=== PATIENT | male | born 1970 ===

== ENCOUNTER 2025-05-11 09:51 | Emergency (ER) | payer BC, SELFPAY ==
--- NOTE | 2025-05-11 | ECG_ITS ---
Test Reason : dizziness Blood Pressure : */* mmHG Vent. Rate : 62 BPM Atrial Rate : 62 BPM P-R Int : 140 ms QRS Dur : 102 ms QT Int : 412 ms P-R-T Axes : 33 46 30 degrees QTcB Int : 418 ms Normal sinus rhythm Minimal voltage criteria for LVH, may be normal variant ( Sokolow-Osuna ) Borderline ECG No previous ECGs available Referred By: Generic ED Physician Electronically Signed By: GABINO ST
[2025-05-11 09:56] VITALS: BP 164/82; PULSE 72; RESP 20; TEMP 36.4; O2SAT 99; BMI 24.5
[2025-05-11 10:40] LABS: Hematocrit 44.0 % (42.0-52.0); Hemoglobin 15.4 g/dl (14.0-18.0); Imm Gran Abs Auto 0.04 X10*3/uL (0.00-0.03); Imm Gran Pct Auto 0.5 % (0.0-0.4); Lymphocytes Absolute Auto 1.1 X10*3/uL (1.2-4.9); MANUAL DIFF FLAG NO; Mean Corpuscular HGB Conc 35.0 g/dl (31.0-36.0); Mean Corpuscular Hemoglobin 29.4 pg (27.0-33.0); Mean Corpuscular Volume 84.0 fL (80.0-98.0); NRBC Abs Auto 0.000 X10*3/uL (0.0-0.012); NRBC Pct Auto 0.0 /100WBC (0.0-0.2); Platelet Count 289 X10*3/uL (160-400); Red Blood Count 5.24 X10*6/uL (4.60-5.80); White Blood Count 7.6 X10*3/uL (4.8-10.8)
--- OUTSIDE RECORDS SUMMARY | 2025-05-11 11:26 | XMS_ITS | Clinical Summary ---
Author Organization [address] Address [address] [place] [address] Phone Care Team Providers Care Cps Team Lead Name Role Phone Dajuan Rangel Primary Care Provider [phone] Allergies No known active allergies Medications amLODIPine (NORVASC) 5 MG tablet 08/16/2015 Active Social History Tobacco Use Types Packs/Day Years Used Date Smoking Tobacco: Never Alcohol Use Standard Drinks/Week Comments No 0 (1 standard drink = 0.6 oz pur e alcohol) Sex and Gender Information Value Date Recorded Sex Assigned at Not on file Legal Sex Male 11:15 AM EDT Gender Identity Not on file Sexual Orientation Not on file Last Filed Vital Signs Vital Sign Reading Time Taken Comments Blood Pressure 140/80 09/18/2015 11:56 AM EDT Pulse 70 09/18/2015 11:56 AM EDT Temperature 36.8 C (98.2 F) 09/18/2015 11:24 AM EDT Respiratory Rate 18 09/18/2015 11:56 AM EDT Oxygen Saturation 96% 09/18/2015 11:24 AM EDT Inhaled Oxygen Concentration - - Weight - - Height - - Body Mass Index - - Plan of Treatment Health Maintenance Due Date Last Done Comments HIV screening 1981 Hepatitis C screening 1986 Tetanus adult (Td q 10,TDAP once) 1988 Lipid disorder screening 2008 Colon cancer screening, Colonoscopy 2013 Diabetes screening 2013 Pneumococcal Vaccine (50+ ye ars) (1 of 1 - PCV) 2018 Shingles vaccine (Shingrix) (1 of 2 - Shingrix (RZV) 2 Dose Standard Series) 2018 Influenza vaccine 12/13/2024 Covid-19 vaccine series (1 - season) 2025 RSV Immunization (1 - 1-dose 75+ series) 12/10/2043 Meningococcal B Vaccine Aged Out No l onger eligible based on patient's age to complete this topic Meningococcal Vaccine Aged Out No dorene michael eligible based on patient's age to complete this topic Care Teams Cps Team Lead Relationship Specialty Start Date End Date Dajuan Rangel [address] [place] [phone] PCP - General 09/18/15
--- OUTSIDE RECORDS SUMMARY | 2025-05-11 11:26 | XMS_ITS | Clinical Summary ---
Author Organization [facility] [address] Address [address] [place] [address] Phone Care Team Providers Care Scoreboard Operator Name Role Phone Davis Sanders MD Primary Care Provider [phone] Allergies No known active allergies Medications esomeprazole magnesium (NEXIUM ORAL) Take by mouth daily. Active FA/mv,Ca,iron,m in/lycopene/lut (MULTIVITAL ORAL) Take by mouth daily. Active bisacodyL (DULCOLAX) 5 mg EC tablet Take 2 tablets by mouth right before beginning bowel prep. See instructions provided by the office 2 tablet 5 Active polyethylene glycol (Golytely) 236-22.74-6.74 -5.86 gram solution Take 4L by mouth once for one dose. May substitue any PEG. Starting at 2PM the day before your procedure drink 1 8oz glasses at your own pace until you complete half of the gallon. Finish 2nd half of the gallon at 8PM. 4000 mL 5 Active bisacodyL (DULCOLAX) 5 mg EC tablet Take 2 tablets by mouth right before beginning bowel prep. See instructions provided by the office 2 tablet 5 Active polyethylene glycol (Golytely) 236-22.74-6.74 -5.86 gram solution Take 4L by mouth once for one dose. May substitue any PEG. Starting at 2PM the day before your procedure drink 1 8oz glasses at your own pace until you complete half of the gallon. Finish 2nd half of the gallon at 8PM. 4000 mL 5 Active tamsulosin (FLOMAX) 0.4 mg 24 hr capsuleIndicati ons:Benign prostatic hyperplasia, unspecified whether lower urinary tract symptoms present,Elevate d PSA TAKE 1 CAPSULE BY MOUTH DAILY. TAKE 30 MINS AFTER SAME MEAL EVERY DAY. 90 capsule 5 Active amLODIPine (NORVASC) 10 mg tablet Take 1 tablet (10 mg total) by mouth 1 (one) time each day. 90 tablet 5 Active Active Problems Problem Noted Date Diagnosed Date Heartburn 04/25/2016 Essential hypertension, benign 09/19/2005 Encounters Date Type Department Care Team Description 03/03/2025 2:19 PM EDT Anesthesia Event [facility] Endoscopy [address] [place] [address] Giancarlo Vazquez DO Dasilva, John E, MD 03/03/2025 12:55 PM EDT - 03/03/2025 11:59 PM EDT Hospital Encounter [facility] Endoscopy [address] [place] [address] Anne Anaya MD Couture, Alison, CRNA Korobkov, Vitaliy, DO Hx of colonic polyps Discharge Disposition: Home or Self Care from Last 3 Months Immunizations Immunization Administration Dates Next Due Influenza Quadravalent, MDCK , 0.5ml, preservative free (Flucelvax) 6mo and older 04/04/2023,04/08/2019 Influenza Quadravalent, MDCK , 0.5ml, with preservative (Flucelvax) 6mo and older 02/15/2018,01/23/2017,04/08/2016 Influenza trivalent, with pr eservative (Fluzone; Afluria) 6mo and older 04/08/2016,03/09/2011,03/09/2011,03/08,03/08/2008 Pfizer SARS-CoV-2 COVID-19, mRNA, LNP-S, preservative free 10/04/2020,09/12/2020 Pneumococcal polysaccharide 23 valent (Pneumovax 23) 2yo and older 03/08/2008,12/14/2005 Tdap Tetanus diptheria acell ular pertussis (Boostrix; Adacel) 7yo and older 05/11/2015 Zoster recombinant (Shingrix ) 19yo and older 06/01/2024,02/27/2024 Surgical History Surgery Date Site/Laterality Comments APPENDECTOMY 03/07/08 PROCEDURE: HISTORICAL APPENDECTOMY; COMMENT: Dr. Wright Medical History Medical History Date Comments Essential hypertension, benign 09/19/2005 D X:Essential hypertension, benign Family history of diabetes m ellitus type II 03/13/2013 DX:Family history of diabete s mellitus type II Heartburn 04/25/2016 DX:Heartburn GERD (gastroesophageal reflux disease) BPH (benign prostatic hyperplasia) Family History Medical History Relation Name Comments Diabetes Father Diabetes Mother Relation Name Status Comments Father Alive Mother Alive Social History Tobacco Use Types Packs/Day Years Used Date Smoking Tobacco: Never Smokeless Tobacco: Never Tobacco Cessation:Counseling Given: Not Answered Alcohol Use Standard Drinks/Week Comments Yes 0 (1 standard drink = 0.6 oz pur e alcohol) OCC Interpersonal Safety Answer Date Record ed Physical Abuse Unrecognized value 03/03/2025 Verbal Abuse Unrecognized value 03/03/2025 Sex and Gender Information Value Date Recorded Sex Assigned at Male 02/26/2025 6:46 PM EDT Legal Sex Male 1:11 AM EST Gender Identity Male 02/26/2025 6:46 PM EDT Sexual Orientation Not on file Last Filed Vital Signs Vital Sign Reading Time Taken Comments Blood Pressure 126/92 03/03/2025 2:53 PM EDT Pulse 78 03/03/2025 2:53 PM EDT Temperature 36.1 C (97 F) 03/03/2025 2:33 PM EDT Respiratory Rate 17 03/03/2025 2:53 PM EDT Oxygen Saturation 98% 03/03/2025 2:53 PM EDT Inhaled Oxygen Concentration - - Weight 77.1 kg (170 lb) 03/03/2025 1:49 PM EDT Height 177.8 cm (5' 10 ) 03/03/2025 1:49 PM EDT Body Mass Index 24.39 03/03/2025 1:49 PM EDT Plan of Treatment Upcoming Encounters Date Type Department Care Team (Late st Contact Info) Description 06/17/2025 3:30 PM EST Office Visit Adult Medicine [facility] [address] [place] [address] Davis Sanders MD [address] [place] [phone] Health Maintenance Due Date Last Done Comments Hepatitis B Vaccines (1 of 3 - 19+ 3-dose series) 12/10/1987 Pneumococcal Vaccine: 50+ Years (2 of 2 - PCV) 2018 03/08/2008, 12/14/2005 Colorectal Cancer Screening: Stool Based Tests (FOBT/FIT) 04/23/2022 Social Influencers of Health Screening 04/23/2022 Hypertension/CHF/CAD Annual BMP Blood Test 04/04/2024 04/04/2023 Depression Screening 05/15/2024 COVID-19 Vaccine (3 - 2024- season) 2025 10/04/2020, 09/12/2020 Influenza Vaccine (#1) 2025 , 04/08/2019, 02/15/2018, Additional history exists DTaP,Tdap,and Td Vaccines (2 - Td or Tdap) 05/11/2025 05/11/2015 Cholesterol Screening (Lipid Panel) 04/04/2028 04/04/2023 RSV Immunization Adult Patients (1 - 1-dose 75+ series) 12/10/2043 HIV Screening Completed 06/06/2017 Hepatitis C Screening Completed 06/06/2017 Zoster Vaccines Completed 06/01/2024, 02/27/2024 Colorectal Cancer Screening: Colonoscopy Discontinued 03/03/2025, 11/19/2020 HIB Vaccines Aged Out No longer eligi ble based on patient's age to complete this topic HPV Vaccines Aged Out No longer eligi ble based on patient's age to complete this topic Hepatitis A Vaccines Aged Out No long er eligible based on patient's age to complete this topic IPV Vaccines Aged Out No longer eligi ble based on patient's age to complete this topic MMR Vaccines Aged Out No longer eligi ble based on patient's age to complete this topic Meningococcal ACWY Vaccine Aged Out N o longer eligible based on patient's age to complete this topic Meningococcal B Vaccine Aged Out No l onger eligible based on patient's age to complete this topic RSV Immunization Patients Under 20 months Aged Out No longer eligible based on patient's age to complete this topic Varicella Vaccines Aged Out No longer eligible based on patient's age to complete this topic Goals Goal Patient Goal Type Associated Problems Recent Progress Patient-Stated? Author Autogenera arminda Goal Care Plan Autogenerated Problem No Halie Miller Procedures Procedure Name Priority Date/Time Associated Diagnosis Comments COLONOSCOPY Routine 03/03/2025 2:32 PM EDT Hx of colonic polyps ANNUAL BMP BLOOD TEST Routine 04/04/2023 LIPID PANEL Routine 04/04/2023 HEPATITIS C SCREENING Routine 06/06/2017 HIV SCREENING Routine 06/06/2017 from Last 3 Months or Most Recently Relevant to Health Maintenance Results * COLONOSCOPY Anesthesia - MAC; [facility] ENDOSCOPY (03/03/2025 2:32 PM EDT) Anatomical Region Laterality Modality Endoscopy 03/03/2025 2:20 PM EDT Impressions 03/03/2025 2:37 PM EDT - Internal hemorrhoids. - The examination was otherwise normal. - No specimens collected. Recommendation: - Discharge patient to home. - Repeat colonoscopy in 5 years for surveillance. Narrative 03/03/2025 2:37 PM EDT [facility] GI Patient Name: Mac Ross Procedure Date: 03/03/2025 2:20 PM Date of : 1970 Age: 54 Gender: Male Note Status: Finalized Attending MD: Anne Anaya MD, Procedure Date No Time: 03/03/2025 Procedure: Colonoscopy Indications: High risk colon cancer surveillance: Personal history of colonic polyps, High risk colon cancer surveillance: Personal history of adenoma (10 mm or greater in size) Providers: Anne Anaya MD Referring MD: Anne Anaya MD Medicines: Monitored Anesthesia Care Complications: No immediate complications. Estimated blood loss: None. Estimated Blood Loss: Estimated blood loss: none. Procedure: Pre-Anesthesia Assessment: - Prior to the procedure, a History and Physical was performed, and patient medications and allergies were reviewed. The patient is competent. The risks and benefits of the procedure and the sedation options and risks were discussed with the patient. All questions were answered and informed consent was obtained. Patient identification and proposed procedure were verified by the physician, the nurse, the children's program coordinator and the manufacturing lab technician in the pre-procedure area in the endoscopy suite. Mental Status Examination: alert and oriented. Airway Examination: normal oropharyngeal airway and neck mobility. Respiratory Examination: clear to auscultation. CV Examination: normal. Prophylactic Antibiotics: The patient does not require prophylactic antibiotics. Prior Anticoagulants: The patient has taken no anticoagulant or antiplatelet agents. ASA Grade Assessment: II - A patient with mild systemic disease. After reviewing the risks and benefits, the patient was deemed in satisfactory condition to undergo the procedure. The anesthesia plan was to use monitored anesthesia care (MAC). Immediately prior to administration of medications, the patient was re-assessed for adequacy to receive sedatives. The heart rate, respiratory rate, oxygen saturations, blood pressure, adequacy of pulmonary ventilation, and response to care were monitored throughout the procedure. The physical status of the patient was re-assessed after the procedure. After I obtained informed consent, the scope was passed under direct vision. Throughout the procedure, the patient's blood pressure, pulse, and oxygen saturations were monitored continuously. The Colonoscope was introduced through the anus and advanced to the cecum, identified by appendiceal orifice and ileocecal valve. The colonoscopy was performed without difficulty. The patient tolerated the procedure well. The quality of the bowel preparation was good. Findings: The perianal and digital rectal examinations were normal. Internal hemorrhoids were found during retroflexion. The hemorrhoids were Grade I (internal hemorrhoids that do not prolapse). The exam was otherwise without abnormality. Procedure Code(s): --- Professional --- G0105, Colorectal cancer screening; colonoscopy on individual at high risk Diagnosis Code(s): --- Professional --- Z86.010, Personal history of colonic polyps CPT copyright 2020 [employer]. All rights reserved. The codes documented in this report are preliminary and upon him coder review may be revised to meet current compliance requirements. Anne Anaya MD 03/03/2025 2:37:06 PM This report has been signed electronically.Anne Anaya MD Number of Addenda: 0 Note Initiated On: 03/03/2025 2:20 PM Scope Withdrawal Time: 0 hours 6 minutes 51 seconds Scope In: 2:25:29 PM Scope Out: 2:34:33 PM Endoscopy Department at [facility] - [address] [place] [phone] Procedure Note Anne Anaya MD - 03/03/2025 [facility] GI Patient Name: Mac Ross Procedure Date: 03/03/2025 2:20 PM Date of : 1970 Age: 54 Gender: Male Note Status: Finalized Attending MD: Anne Anaya MD, Procedure Date No Time: 03/03/2025 Procedure: Colonoscopy Indications: High risk colon cancer surveillance: Personalhistory of colonic polyps, High risk colon cancer surveillance: Personal history of adenoma (10 mm or greater in size) Providers: Anne Anaya MD Referring MD: Anne Anaya MD Medicines: Monitored Anesthesia Care Complications: No immediate complications. Estimated blood loss:None. Estimated Blood Loss: Estimated blood loss: none. Procedure: Pre-Anesthesia Assessment: - Prior to the procedure, a History and Physicalwas performed, and patient medications and allergieswere reviewed. The patient is competent. The risks and benefits of the procedure and the sedation optionsand risks were discussed with the patient. Allquestions were answered and informed consent was obtained. Patient identification and proposed procedure were verified by the physician, the nurse, theanesthetist and the manufacturing lab technician in the pre-procedure area in the endoscopy suite. Mental Status Examination: alertand oriented. Airway Examination: normal oropharyngeal airway and neck mobility. Respiratory Examination: clear to auscultation. CV Examination: normal. Prophylactic Antibiotics: The patient does notrequire prophylactic antibiotics. Prior Anticoagulants: The patient has taken no anticoagulant or antiplatelet agents. ASA Grade Assessment: II - A patient withmild systemic disease. After reviewing the risks and benefits, the patient was deemed in satisfactory condition to undergo the procedure. The anesthesia plan was to use monitored anesthesia care (MAC). Immediately prior to administration of medications, the patient was re-assessed for adequacy to receive sedatives. The heart rate, respiratory rate, oxygen saturations, blood pressure, adequacy of pulmonary ventilation, and response to care were monitored throughout the procedure. The physical status ofthe patient was re-assessed after the procedure. After I obtained informed consent, the scope was passed under direct vision. Throughout theprocedure, the patient's blood pressure, pulse, and oxygen saturations were monitored continuously. The Colonoscope was introduced through the anus and advanced to the cecum, identified by appendiceal orifice and ileocecal valve. The colonoscopy was performed without difficulty. The patient tolerated the procedure well. The quality of the bowel preparation was good. Findings: The perianal and digital rectal examinations were normal. Internal hemorrhoids were found duringretroflexion. The hemorrhoids were Grade I (internal hemorrhoids that do not prolapse). The exam was otherwise without abnormality. Procedure Code(s): --- Professional --- G0105, Colorectal cancer screening; colonoscopy on individual at high risk Diagnosis Code(s): --- Professional --- Z86.010, Personal history of colonic polyps CPT copyright 2020 [employer]. All rights reserved. The codes documented in this report are preliminary and upon him coder reviewmay be revised to meet current compliance requirements. Anne Anaya MD 03/03/2025 2:37:06 PM This report has been signed electronically.Anne Anaya MD Number of Addenda: 0 Note Initiated On: 03/03/2025 2:20 PM Scope Withdrawal Time: 0 hours 6 minutes 51 seconds Scope In: 2:25:29 PM Scope Out: 2:34:33 PM Endoscopy Department at [facility] - [address] [place] [phone] IMPRESSION: - Internal hemorrhoids. - The examination was otherwise normal. - No specimens collected. Recommendation: - Discharge patient to home. - Repeat colonoscopy in 5 years for surveillance. Anne Anaya MD GI~PROCEDURE ORDERABLES Fin al Result * Annual BMP Blood Test (04/04/2023) Annual [facility] Blood Test Abstracted Historical Provider HEALTH MAINTENANCE Final Result * (ABNORMAL) Lipid panel (04/04/2023) LDL/HDL Ratio 3 0 - 4 Triglycerides 90 0 - 150 mg/dL Cholesterol 192 0 - 200 mg/dL HDL 58 >=40 mg/dL LDL Cholesterol 116(A) 0 - 100 mg/dL Blood Venous blood specimen / Unknown Historical Provider LAB BLOOD ORDERABLES Felecia l Result * HIV Screening (06/06/2017) HIV Screening Abstracted [facility] Provider HEALTH MAINTENANCE Final Result * Hepatitis C Screening (06/06/2017) Hepatitis C Screening Abstracted [facility] Provider HEALTH MAINTENANCE Final Result from Last 3 Months or Most Recently Relevant to Health Maintenance Additional Health Concerns Active Problems Noted Date Diagnosed Date Autogenerated Problem 02/10/2025 Insurance [facility] Care Teams Scoreboard Operator Relationship Specialty Start Date End Date Davis Sanders MD [address] [place] [phone] PCP - General Internal Medicine 12/09/20
[2025-05-11 11:31] VITALS: BP 124/74; PULSE 61; RESP 16; TEMP 36.3; O2SAT 97
--- NOTE | 2025-05-11 11:59 | ED_ITS ---
HPI - General Adult General Chief complaint: Dizziness Stated complaint: Dizzy Nausea Vomiting Time Seen by Provider: 05/11/25 11:34 Source: patient, family ( at bedside corroborating history), RN notes reviewed and old records reviewed Mode of arrival: ambulatory Limitations: no limitations History of Present Illness ED Provider: KYARA Morrison HPI narrative: 54 year old male with medical history of HTN presents to ED due to dizziness and nausea. Patient states he woke up yesterday at 5:00 a.m. and when getting out of bed noticed sudden onset of dizziness feeling as if the room was spinning around him, and worse when changing positions. Patient states this was his only episode of dizziness and it had resolved for the rest of the day. Patient states he woke up this morning at 3am and had another episode of positional dizziness that is worse when he is turning or looking to the left. Patient reports the dizziness is intermittent, with episodes lasting approximately 5-10 minutes at a time with longest episode lasting approximately 1 hour causing him to vomit 4 times prior to arrival. Patient denies sick contacts, recent travel, chest pain, shortness of breath, difficulty breathing, abdominal pain, diarrhea, black/tarry stool, urinary symptoms MD complaint: Intermittent dizziness with nausea Related Data Previous Rx's ?Medication ?Instructions ?Recorded meclizine 25 mg tablet 25 mg PO BID PRN dizziness # 30 tabs 05/11/25 ondansetron HCl 4 mg tablet 4 mg PO Q8H PRN nausea and 05/11/25 vomiting 5 days #15 tabs Allergies Allergy/AdvReac Type Severity Reaction Status Date / Time No Known Allergies Allergy Verified 05/11/25 09:59 Review of Systems 2 Review of Systems: Yes all other systems are reviewed and are negative PMFSH Past Medical History Attestation statement: The following information was validated with the patient. Source: old records reviewed, obtained from family ( at bedside corroborating history) and nursing notes reviewed Social History Social History Smoked in Last 30 Days: No Use of substances other than those prescribed or required for medical reasons: No Advance Directives: No Advance Directives Information Provided: Yes Do you have a plan to hurt others: No Plan Physical Exam ED Vital Signs: Vital Signs - 24 hr 05/11/25 09:56 05/11/25 11:31 05/11/25 13:36 Temperature 97.6 F 97.4 F Pulse Rate 72 61 62 Respiratory Rate 20 16 Blood Pressure 164/82 H 124/74 130/87 Pulse Oximetry 99 97 Oxygen Delivery Method Room Air Room Air 05/11/25 13:36 05/11/25 13:37 Temperature Pulse Rate 62 68 Respiratory Rate Blood Pressure 136/88 143/90 H Pulse Oximetry Oxygen Delivery Method BMI result Body Mass Index 24.5 NIH Stroke Scale Internal: Initial- Upon Arrival Level of Consciousness: Alert Level of Consciousness Questions: Answers both questions correctly Level of Consciousness Commands: Performs both tasks correctly Best Gaze: Normal Visual: No visual loss Facial Palsy: Normal Motor Arm (Right): No drift Motor Arm (Left): No drift Motor Leg (Right): No drift Motor Leg (Left): No drift Limb Ataxia: Absent Sensory: Normal Best Language: No aphasia Dysarthia: Normal Extinction and Inattention: No abnormality Score: 0 Medications Administered Discontinued Medications Generic Name Dose Route Start Last Admin Trade Name Keith PRN Reason Stop Dose Admin Diazepam 2.5 mg 05/11/25 13:31 05/11/25 13:41 Diazepam 10 Mg/2 Ml Cartridge IVPUSH 05/11/25 13:32 2.5 mg STAT STA Administration Lactated Ringer's 1,000 mls @ 999 mls/hr 05/11/25 11:59 05/11/25 13:14 Lr IV 05/11/25 12:59 Infused .Q1H1M ONE Infusion Lactated Ringer's 1,000 mls @ 999 mls/hr 05/11/25 13:31 05/11/25 14:34 Lr IV 05/11/25 14:31 Infused .Q1H1M ONE Infusion Meclizine HCl 25 mg 05/11/25 11:59 05/11/25 12:13 Meclizine Hcl 25 Mg Tablet PO 05/11/25 12:00 25 mg ONCE ONE Administration Ondansetron HCl 4 mg 05/11/25 11:59 05/11/25 12:13 Ondansetron Hcl 4 Mg/2 Ml Vial IVPUSH 05/11/25 12:00 4 mg ONCE ONE Administration Medical Decision Making Medical Decision Making MDM Narrative: 54 year old male with medical history of HTN presents to ED due to intermittent dizziness and nausea that began yesterday after waking up, but resolved quickly. Patient woke up this morning at 3:30 a.m. with additional episodes of intermittent dizziness, worse when lying/looking to the left, episodes last anywhere from 5-10 minutes with 1 episode lasting approximately 1 hour with 4 episodes of vomiting prior to arrival. Episodes are not associated with syncope, lightheadedness, chest pain, shortness of breath VS on initial observation-BP 164/82, pulse rate is 72, respiratory rate of 20, afebrile with oral temp of 97.6?, O2 saturation 99% on room air. On physical exam patient is well-appearing, nontoxic appearing, in no acute distress, HEENT exam reveals normocephalic atraumatic head, pupils are reactive to accommodation and consensual light reflex, no nystagmus noted, I am able to reproduce dizziness when having the patient look towards the left, no meningeal signs, lungs clear to auscultation bilaterally, cardiac exam reveals normal rate and rhythm without murmurs/rubs/gallops, abdomen is soft, nontender, nondistended, nonrigid, extremities without edema, the patient is neurologically intact without neurologic deficits noted, patient without facial drooping, speech slurring or word-finding difficulty, strength 5/5 bilaterally of lower extremities and upper extremities, no pronator drift, patient is able to heel walk and toe walk, no cerebellar symptoms, NIHSS 0 Plan: Labs, EKG - Patient being medicated with 1 L IV fluids, 25 mg p.o. meclizine, 4 mg IV Zofran Course 1:56pm- EKG reveals normal sinus rhythm without ST-elevation/depression, lengthened QT, initial troponin is undetectable at <2.7, patient without chest pain or syncopal episodes Labs without leukocytosis/leukopenia, no electrolyte abnormalities, random serum glucose is mildly elevated at 129, ALT of 48 Patient was medicated with 1 L IV fluids, 25 mg p.o. meclizine, 4 mg IV Zofran and is still having positional dizziness and nausea and is unable to tolerate p.o. at this time. Will give an additional 1 L fluids, 2.5 mg IV diazepam and reassess. 2:42pm- Orthostatic vital signs negative for orthostatic hypotension, no significant drop in blood pressure or overcompensation by heart rate. Patient is hypertensive today while in the department however did not take his antihypertensive medication due to nausea and vomiting. Patient was given home dose of 10 mg amlodipine today before discharge for hypertension. Patient presents with intermittent, positional dizziness provoked by head turning to the left. Symptoms are episodic and not constant, and are not associated with headache, visual changes, focal weakness, numbness, speech difficulty, dysphagia, chest pain, or syncope. Vital signs remained stable throughout the ED course. Neurologic examination is nonfocal with NIH Stroke Scale score of 0. There is no truncal ataxia or gait instability. EKG demonstrates normal sinus rhythm without ischemic changes or arrhythmia. High- sensitivity troponin is undetectable, making acute coronary syndrome unlikely. Laboratory evaluation is unremarkable with no leukocytosis, anemia, or electrolyte abnormalities to suggest metabolic or infectious etiology. Given the positional and intermittent nature of symptoms, normal neurologic examination, NIHSS of 0, and absence of posterior circulation red flag symptoms, there is low clinical suspicion for acute ischemic stroke or TIA. Patient denies recent URI, illness, no tinnitus less likely labyrinthitis Presentation is most consistent with a peripheral vestibular process, such as benign paroxysmal positional vertigo and may need vestibular physical therapy for treatment. Advanced imaging is not indicated at this time. Patient is being discharged with meclizine, Zofran to manage dizziness and nausea at home until he can follow up with his primary care doctor. Patient remained clinically stable and is appropriate for discharge with outpatient follow-up and strict return precautions. Patient and his are in agreement with the plan. Differential Diagnosis Differential Diagnoses: The differential diagnosis associated with the presentation includes ACS Dysrhythmia TIA Stroke Labyrinthitis Meniere disease BPPV Dehydration Orthostatic hypotension Admission/Observation Consideration of admission/observation: Escalation of care including admission/observation considered Lab Data MDM Lab Attestation statement: I reviewed the patient's lab results. 05/11/25 10:31 05/11/25 10:31 Labs: Lab Results 05/11/25 05/11/25 Range/Units 10:31 12:13 WBC 7.6 (4.8-10.8) X10*3/uL RBC 5.24 (4.60-5.80) X10*6/uL Hgb 15.4 (14.0-18.0) g/dl Hct 44.0 (42.0-52.0) % MCV 84.0 (80.0-98.0) fL MCH 29.4 (27.0-33.0) pg MCHC 35.0 (31.0-36.0) g/dl RDW 12.7 (11.0-16.0) % Plt Count 289 (160-400) X10*3/uL MPV 9.0 L (9.4-12.4) fL Immature Gran % (Auto) 0.5 H (0.0-0.4) % Neut % (Auto) 81.9 H (45-73) % Lymph % (Auto) 14.2 L (20-40) % Craig % (Auto) 2.5 (2-11) % Eos % (Auto) 0.5 (0-4) % Baso % (Auto) 0.4 (0-2) % Lymph # (Auto) 1.1 L (1.2-4.9) X10*3/uL Craig # (Auto) 0.2 (0.1-1.2) X10*3/uL Eos # (Auto) 0.0 (0.0-0.4) X10*3/uL Baso # (Auto) 0.0 (0.0-0.2) X10*3/uL Abs Immat Gran (auto) 0.04 H (0.00-0.03) X10*3/uL Absolute Neuts (auto) 6.2 (2.0-8.3) x10*3/uL Absolute Nucleated RBC 0.000 (0.0-0.012) X10*3/uL Nucleated RBC % (auto) 0.0 (0.0-0.2) /100WBC Sodium 143 (135-145) mmol/L Potassium 3.8 (3.3-5.1) mmol/L Chloride 107 (96-108) mmol/L Carbon Dioxide 25 (22-29) mmol/L Anion Gap 15 (12-20) BUN 16 (9-16) mg/dL Creatinine 1.02 (0.5-1.4) mg/dL Estim Creat Clear Calc 83.4 Estimated GFR > 60 Random Glucose 129 H (60-115) mg/dL Calcium 9.5 (8.4-10.2) mg/dL Magnesium 2.2 (1.6-2.6) mg/dL Total Bilirubin 0.3 (0.0-1.0) mg/dL Direct Bilirubin 0.2 (0.0-0.5) mg/dL AST 30 (5-37) U/L ALT 48 H (0-40) U/L Alkaline Phosphatase 113 (39-117) U/L Troponin I High Sens < 2.7 (<3.5-35.0) ng/L Total Protein 7.9 (6.5-8.0) g/dL Albumin 4.8 (3.5-5.0) g/dL Lipase 25 (8-78) U/L Influenza Type A (PCR) NEGATIVE (Negative) Influenza Type B (PCR) NEGATIVE (Negative) RSV RNA Qual (PCR) NEGATIVE (Negative) SARS-CoV-2 RNA (RT-PCR) NEGATIVE (Negative) Independent Interpretation I performed an independent interpretation of an: EKG Interpretation: I personally interpreted the EKG which reveals normal sinus rhythm without significant ST-elevation/depression, dysrhythmia, lengthened QT Vent. Rate : 62 BPM Atrial Rate : 62 BPM P-R Int : 140 ms QRS Dur : 102 ms QT Int : 412 ms P-R-T Axes : 33 46 30 degrees QTcB Int : 418 ms Normal sinus rhythm Minimal voltage criteria for LVH, may be normal variant ( Sokolow-Osuna ) Borderline ECG No previous ECGs available Independent Historian Clinical information obtained from an independent historian. History obtained from or confirmed by: Spouse ( at bedside corroborating history) External Record Review External record reviewed: Inpatient record, Office record, Outpatient record and Prior outpatient labs Chronic Conditions Patient?s care impacted by: Hypertension Discharge Plan Discharge Clinical Impression: Dizziness, Nausea Patient Disposition: Home, Self-Care Additional Instructions: You were seen today for intermittent, positional dizziness that is worse when you look to the left. Your evaluation today was reassuring: vital signs were stable, labs were normal (no leukocytosis or electrolyte abnormality), EKG was normal, and your troponin was undetectable, making a dangerous heart cause unlikely. You also had no headache or visual changes and no concerning neurologic findings on exam. Your symptoms are most consistent with a p eripheral/benign cause of vertigo (such as positional vertigo), and you are safe for discharge at this time. Medications: Take meclizine as prescribed for dizziness/vertigo (may cause drowsiness?do not drive, operate machinery, or drink alcohol while taking it). Take ondansetron (Zofran) as prescribed for nausea/vomiting. You may also rest, change positions slowly, and stay well hydrated. Avoid sudden head movements that trigger symptoms. If symptoms seem clearly positional, you may benefit from positional exercises (such as the Jaxon maneuver), which your primary care provider can review and/or refer you to vestibular physical therapy. Follow-up: Please follow up with your primary care provider this week for reassessment and to consider further evaluation (and referral to ENT/vestibular therapy if symptoms persist). Return to the ER immediately if you develop new or worsening symptoms, including: worsening dizziness that becomes constant or severe, trouble walking, repeated falls, new weakness/numbness, facial droop, trouble speaking, confusion, severe imbalance, new severe headache, neck pain, vision changes, double vision, trouble swallowing, fainting, chest pain, shortness of breath, persistent vomiting/inability to keep fluids down, fever with worsening symptoms, or any other concern. Prescriptions: New meclizine 25 mg tablet 25 mg PO BID PRN (Reason: dizziness) Qty: 30 0RF ondansetron HCl 4 mg tablet 4 mg PO Q8H PRN (Reason: nausea and vomiting) 5 Days Qty: 15 0RF Print Language: Greenlandic
[2025-05-11 12:07] LABS: Alanine Aminotransferase 48 U/L (0-40); Albumin Level 4.8 g/dL (3.5-5.0); Alkaline Phosphatase 113 U/L (39-117); Anion Gap 15 (12-20); Aspartate Amino Transferase 30 U/L (5-37); Blood Urea Nitrogen 16 mg/dL (9-16); Calcium 9.5 mg/dL (8.4-10.2); Carbon Dioxide 25 mmol/L (22-29); Chloride 107 mmol/L (96-108); Creatinine Clr Calc Pharmacy 83.4; Estimated Glomerular Filt Rate > 60; Lipase 25 U/L (8-78); Potassium 3.8 mmol/L (3.3-5.1); Sodium 143 mmol/L (135-145); Total Protein 7.9 g/dL (6.5-8.0)
[2025-05-11] MEDS: Lactated Ringers 1,000 ML 999 ML IV ×2 (12:13→13:33)
[2025-05-11 12:19] LABS: Magnesium 2.2 mg/dL (1.6-2.6)
[2025-05-11 12:54] LABS: Resp Syncy Virus RNA Qual PCR NEGATIVE (Negative); SARS COV2 PCR INHOUSE NEGATIVE (Negative)
--- NOTE | 2025-05-11 13:19 | PC.NURSE ---
julissa Irwin in chemistry will process troponin add on now
[2025-05-11 13:36] VITALS: BP 130/87; BP 136/88; PULSE 62
[2025-05-11 13:37] VITALS: BP 143/90; PULSE 68
[2025-05-11] MEDS: diazePAM 10 MG/2 ML CARTRIDGE 2.5 MG IVPUSH (13:41)
[2025-05-11 13:47] LABS: Troponin-I High Sensitivity < 2.7 ng/L (<3.5-35.0)
[2025-05-11 15:12] VITALS: BP 120/70; PULSE 72; RESP 16; TEMP 36.7; O2SAT 95
== END 2025-05-11 15:14 | disposition home or self-care (01) ==
PROVIDERS: Emergency Provider Emergency Medicine; PCP Pediatrics
DX: R42 Dizziness and giddiness (principal); R11.2 Nausea with vomiting, unspecified; I10 Essential (primary) hypertension; Z03.818 Encounter for observation for suspected exposure to other biological agents ruled out
CPT/HCPCS: 36415; 80048; 80076; 83690; 83735; 84484; 85025; 87637; 93005; 99284; 99285; J2405; J3360; J7120

== ENCOUNTER → 2025-05-11 10:26 | Outpatient (BNV) | payer BC, SELFPAY | PROVIDERS: Emergency Provider Emergency Medicine; PCP Pediatrics; Visit Provider Internal Medicine | DX: R42 Dizziness and giddiness (principal) | CPT/HCPCS: 93010 ==